=== PATIENT | female | born 1980 | race Caucasian/White ===

== ENCOUNTER 2017-09-28 12:39 | Emergency (ER) | payer OTHER ==
[~2017-09-28] VITALS: Ht 157.5 cm; Wt 56.7 kg
[~2017-09-28 12:39] MED LIST: IBUPROFEN800 M1 PO; IRON SUPPLEMEN325 MG PO; PERCOCET 5-3251 EACH PO
[2017-09-28 12:40] VITALS: BP 109/71
--- NOTE | 2017-09-28 13:34 | ED UPPER/LOWER EXTREMITY COMPL ---
History of Present Illness General Chief Complaint: Abdominal Pain/Flank Pain Stated Complaint: RLQ PULLING SENSATION, PT 15 WEEKS Source: patient, family, old records Exam Limitations: no limitations Vital Signs & Intake/Output Vital Signs & Intake/Output Vital Signs Date Time Temp Pulse Resp B/P B/P Pulse O2 O2 Flow FiO2 Mean Ox Delivery Rate 09/28 1240 97.9 85 18 109/71 98 Room Air Allergies Coded Allergies: NO KNOWN ALLERGIES (02/04/16) Reconcile Medications Ferrous Sulfate (Iron Supplement) 325 MG TABLET 1 TAB PO DAILY ANEMIA Ibuprofen 800 MG TABLET 800 MG PO Q6P PRN UTERINE CRAMPING Oxycodone HCl/Acetaminophen (Percocet 5-325 MG Tablet) 1 EACH TABLET 2 TAB PO Q4P PRN PAIN SCALE 7-10 (SEVERE) Triage Note: 36 YO FEMALE TO TRIAGE. PT REPORTS SHE IS CURRENTLY 15 WEEKS AND SHE WITNESSED HER DAUGHTER FALLING INTO THE SINK. PT REPORTS SHE GOT NERVOUS AND NOW IS HAVING RLQ PAIN. REPORSTS PAIN IS A STRETCHING SENTATION. DENIES VAGINAL LEAKING/BLEEDING. SPOKE TO JACOB IN [facility] WHO STATES PT CAN BE SEEN HERE AND TO CALL WHEN FHT ARE NEEDE.D Triage Nurses Notes Reviewed? yes Onset: Just prior to arrival Duration: minute(s):, constant, gone now Timing: recent history Severity: mild Pain/Injury Location: Right: Other (inguinal area). Method of Injury: running to daughter Modifying Factors: Improves With: rest. Worsens With: movement. Associated Symptoms: GCS 15 since LMP (ages 10-50): 15 weeks age gestation : Yes Patient currently breastfeeds: No HPI: Prior to admission patient rushed to the side of her daughter who sustained forehead injury and felt sharp pain to the right inguinal area lasting several minutes mild to moderate nonradiating now gone. She denies fever chills nausea vomiting diarrhea abdominal pain chest pain shortness breath headache dysuria rash bleeding vaginal discharge. Past History Travel History Traveled to [place] past 21 day No Medical History Any Pertinent Medical History? see below for history Neurological: NONE EENT: NONE Cardiovascular: NONE Respiratory: asthma Gastrointestinal: NONE Hepatic: NONE Renal: NONE Musculoskeletal: NONE Psychiatric: NONE Endocrine: NONE Blood Disorders: NONE Cancer(s): NONE RELOCATION SERVICES SPECIALIST/Reproductive: NONE Surgical History Surgical History: N (hysteroscopy D+C 09/2013) Psychosocial History What is your primary language Turkmen Tobacco Use: Never used Family History Hx Contributory? No Review of Systems Review of Systems Constitutional: Reports: no symptoms. EENTM: Reports: no symptoms. Respiratory: Reports: no symptoms. Cardiovascular: Reports: no symptoms. Gastrointestinal/Abdominal: Reports: no symptoms. Genitourinary: Reports: no symptoms. Musculoskeletal: Reports: see HPI, muscle pain. Skin: Reports: no symptoms. Neurological/Psychological: Reports: no symptoms. Hematologic/Endocrine: Reports: no symptoms. Immunological: Reports: no symptoms. All Other Systems: Reviewed and Negative Physical Exam Physical Exam General Appearance: well developed/nourished, alert, awake, anxious, mild distress Head: atraumatic, normal appearance Eyes: Bilateral: normal appearance, PERRL, EOMI. Ears, Nose, Throat: normal pharynx, normal ENT inspection, hearing grossly normal Neck: normal inspection, supple Cardiovascular/Respiratory: regular rate/rhythm Peripheral Pulses: 4+ carotid (R), 4+ carotid (L) Back: normal inspection Shoulder Left: normal range of motion, normal inspection Shoulder Right: normal range of motion, normal inspection Elbow Left: normal range of motion, normal inspection Elbow Right: normal range of motion, normal inspection Hand Left: normal inspection, normal range of motion Hand Right: normal inspection, normal range of motion Upper Extremity Reflexes: 2+: bicep (R), bicep (L). Leg Left: normal range of motion, normal inspection Leg Right: normal range of motion, normal inspection Hip Left: normal range of motion, normal inspection Hip Right: normal range of motion, normal inspection Knee Left: normal range of motion, normal inspection Knee Right: normal range of motion, normal inspection Foot Left: normal inspection, normal range of motion Foot Right: normal inspection, normal range of motion Lower Extremity Reflexes: 2+: knee (R), knee (L). Neurologic/Tendon: normal sensation, normal motor functions, normal tendon functions Skin: intact, normal color, warm/dry Lymphatic: no anterior cervical tomasa Progress Differential Diagnosis: sprain Plan of Care: tylenol Departure Departure Time of Disposition: 1345 Disposition: HOME OR SELF CARE Condition: Stable Clinical Impression Primary Impression: Strain of right inguinal muscle Referrals: Andrew Anderson MD (PCP/Family) Departure Forms: Customer Survey General Discharge Information
== END 2017-09-28 14:00 ==
LOC: ERH 12:39
DX: O9A.212 Injury, poisoning and certain other consequences of external causes complicating pregnancy, second trimester (principal); Z3A.15 15 weeks gestation of pregnancy; X58.XXXA Exposure to other specified factors, initial encounter; Y92.9 Unspecified place or not applicable; Y93.9 Activity, unspecified